=== PATIENT | female | born 1945 | race Caucasian/White ===

== ENCOUNTER → 2017-11-14 | Outpatient (CLI) | payer MEDICARE, OTHER ==
--- NOTE | 2017-11-17 08:43 | MRI ---
Study: MRI of the Left Shoulder. Indication: SHOUDLER PAIN Technique: Multiplanar, multi sequence MRI of the left shoulder was obtained without intravenous contrast. Comparison: None. Findings: Mild AC joint osteoarthritis. Mild type II acromion with mild lateral downsloping. High-grade supraspinatus and infraspinatus tendinosis with suspected high-grade interstitial tearing at the insertional and critical zone fibers of the conjoined tendon which has filled with granulation tissue. Involved area measures approximately 20 mm AP by 20 mm transverse. No full-thickness tear or tendon retraction. Subscapularis tendinosis with intermediate grade interstitial tearing superiorly. Teres minor tendon intact. Mild atrophy and grade 2 fatty infiltration rotator cuff musculature. Intracapsular long head biceps tendinosis with flattening of the tendon at the intertubercular groove and early partial medial subluxation. There is fluid distention of the bicipital tendon sheath with several loose bodies within the sheath measuring up to 11 mm. Circumferential labral tearing and attenuation. Severe glenohumeral joint osteoarthritis with complete grade 4 chondral loss and cortical remodeling throughout the joint. Large inferior humeral head osteophyte formation. Moderate size joint effusion. No acute fracture. Thickening and edema inferior glenohumeral ligament which can be seen with adhesive capsulitis. Impression: High-grade supraspinatus and infraspinatus tendinosis with high grade interstitial tearing of the conjoined tendon which is filled with granulation tissue. Subscapularis tendinosis with intermediate grade interstitial tearing superiorly. Mild atrophy and grade 2 fatty infiltration rotator cuff musculature. Intracapsular long head biceps tendinosis with partial medial subluxation and several loose bodies within its tendon sheath. Circumferential labral tearing and attenuation. Severe glenohumeral joint osteoarthritis with moderate-sized joint effusion. Adhesive capsulitis. Mild AC joint osteoarthritis. Electronically signed by: Bridger Cesar MD 11/17/2017 8:41 AM CDT
== END ==
LOC: MRI 09:50
PROVIDERS: ATTEND Orthopaedic Surgery
DX: M75.92 Shoulder lesion, unspecified, left shoulder (principal); M19.012 Primary osteoarthritis, left shoulder; M25.512 Pain in left shoulder